=== PATIENT | female | born 1995 | race Caucasian/White ===

== ENCOUNTER 2018-10-24 22:42 | Emergency (ER) | payer OTHER ==
[~2018-10-24] VITALS: Ht 167.6 cm; Wt 77.1 kg
[~2018-10-24 22:42] MED LIST: MEDR150D3 IM; MEDR150V IM
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
[2018-10-24 23:33] VITALS: BP 139/97
[2018-10-24] MEDS ORDERED: TORADOL ONE (23:36)
[2018-10-25] MEDS ORDERED: TORADOL IM ONE
[2018-10-25 00:30] VITALS: BP 111/60
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
[2018-10-25 01:45] VITALS: BP 120/82
[2018-10-25 01:53] VITALS: BP 120/82
== END 2018-10-25 01:48 | disposition home or self-care (01) ==
LOC: EDBD 22:42 → EEVIPCON 22:42 → ER 22:42
DX: R51 Headache (principal); M54.5 Low back pain; F17.210 Nicotine dependence, cigarettes, uncomplicated; Z90.89 Acquired absence of other organs; Z79.899 Other long term (current) drug therapy; W10.1XXA Fall (on)(from) sidewalk curb, initial encounter; Y93.89 Activity, other specified; Y92.488 Other paved roadways as the place of occurrence of the external cause; Y99.8 Other external cause status
CPT/HCPCS: 70450; 72100; 81025; 96372; 99284; J1885